=== PATIENT | female | born 1990 | race American Indian/Alaskan Native ===

== ENCOUNTER 2018-01-27 12:37 | Emergency (ER) | payer MEDICAID ==
[2018-01-27 13:20] VITALS: BP 142/100
--- NOTE | 2018-01-27 16:57 | Emergency Department Report ---
ED Extremity Problem HPI - General Chief complaint: Extremity Injury, Lower Stated complaint: BLISTER ON FEET/RASH Time Seen by Provider: 01/27/18 16:46 Source: patient Mode of arrival: Ambulatory Limitations: No Limitations - History of Present Illness Initial comments: 27-year-old female past medical history none presents with complaint of 2 weeks of irritation and slight blistering to both feet slightly worsened right foot and left foot. Patient denies fevers chills nausea vomiting. Patient denies any contact with new cosmetics or substances. 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 Denies any trauma to feet. States she has noticed some slight blistering and lateral aspects of her feet. Patient also states she has slight hand irritation. Denies any recent travel or antibiotic or any medicine use. MD Complaint: other Onset/Timin -: week(s) Location: right Improves with: nothing Worsens with: nothing - Related Data Previous Rx's Medication Instructions Recorded Last Taken Type Hydrocortisone 1% [Hydrocortisone 1 applicatio TP TID PRN #1 tube 01/27/18 Unknown Rx 1% CREAM] Nystatin [Nystop Powder] 1 applicatio TP BID #1 bottle 01/27/18 Unknown Rx Tolnaftate [Tinactin] 1 spray TP TID #1 aero.powd 01/27/18 Unknown Rx ED Review of Systems ROS: Stated complaint: BLISTER ON FEET/RASH Other details as noted in HPI Constitutional: denies: chills, fever Eyes: denies: eye pain, eye discharge, vision change ENT: denies: ear pain, throat pain Respiratory: denies: cough, shortness of breath, wheezing Cardiovascular: denies: chest pain, palpitations Endocrine: no symptoms reported Gastrointestinal: denies: abdominal pain, nausea, diarrhea Genitourinary: denies: urgency, dysuria, discharge Musculoskeletal: denies: back pain, joint swelling, arthralgia Skin: as per HPI, lesions. denies: rash Neurological: denies: headache, weakness, paresthesias Psychiatric: denies: anxiety, depression Hematological/Lymphatic: denies: easy bleeding, easy bruising ED Past Medical Hx - Past Medical History Previous Medical History?: No - Surgical History Past Surgical History?: Yes Additional Surgical History: small blood vessel surgery, hernia repair, and appendix removal - Social History Smoking Status: Former Smoker Substance Use Type: Alcohol - Medications Home Medications: Home Medications Medication Instructions Recorded Confirmed Last Taken Type Hydrocortisone 1% [Hydrocortisone 1 applicatio TP TID PRN #1 tube 01/27/18 Unknown Rx 1% CREAM] Nystatin [Nystop Powder] 1 applicatio TP BID #1 bottle 01/27/18 Unknown Rx Tolnaftate [Tinactin] 1 spray TP TID #1 aero.powd 01/27/18 Unknown Rx ED Physical Exam - General Limitations: No Limitations General appearance: alert, in no apparent distress - Head Head exam: Present: atraumatic, normocephalic - Eye Eye exam: Present: normal appearance - ENT ENT exam: Present: mucous membranes moist - Neck Neck exam: Present: normal inspection - Respiratory Respiratory exam: Present: normal lung sounds bilaterally. Absent: respiratory distress - Cardiovascular Cardiovascular Exam: Present: regular rate, normal rhythm. Absent: systolic murmur, diastolic murmur, rubs, gallop - GI/Abdominal GI/Abdominal exam: Present: soft, normal bowel sounds - Extremities Exam Extremities exam: Present: normal inspection - Back Exam Back exam: Present: normal inspection - Neurological Exam Neurological exam: Present: alert, oriented X3, CN II-XII intact, normal gait - Psychiatric Psychiatric exam: Present: normal affect, normal mood - Skin Skin exam: Present: warm, dry, intact, normal color, vesicles (small vesicles lateral aspect of right foot. No significant cluster of vesicles. No visible lesions on palms or soles of hands or feet.). Absent: rash ED Course Vital Signs 01/27/18 13:11 Temperature 97.2 F L Pulse Rate 65 Respiratory 18 Rate Blood Pressure 142/100 O2 Sat by Pulse 100 Oximetry ED Medical Decision Making - Medical Decision Making A/P: possible contact dermatitis versus fungal infection feet 1-no systemic signs of infection. Vital signs stable, patient is afebrile. 2-contact with any new cosmetics medicines or recent travel. 3-advised patient to wear comfortable fitting shoes to avoid abrasions and contacts stress on skin of the feet. 4-no systemic or widespread lesions on skin. No clinical signs of widespread poor obvious pemphigoid. Patient only has lesions on lateral aspects of her feet. Slightly worse on right than left. 5- follow-up with primary care and dermatology. Advised patient to return to the ED if she experiences fevers chills or rapid spread of the rash to her extremities trunk or any oral lesions. Patient does not have any oral lesions at this time. Critical care attestation.: If time is entered above; I have spent that time in minutes in the direct care of this critically ill patient, excluding procedure time. ED Disposition Clinical Impression: Contact dermatitis Qualifiers: Contact dermatitis type: unspecified Contact dermatitis trigger: unspecified trigger Qualified Code(s): L25.9 - Unspecified contact dermatitis, unspecified cause Disposition: DC- TO HOME OR SELFCARE Is pt being admited?: No Does the pt Need Aspirin: No Condition: Stable Instructions: Tinea Pedis (ED), Contact Dermatitis (ED) Prescriptions: Hydrocortisone 1% [Hydrocortisone 1% CREAM] 1 applicatio TP TID PRN #1 tube PRN Reason: Itching Nystatin [Nystop Powder] 1 applicatio TP BID #1 bottle Tolnaftate [Tinactin] 1 spray TP TID #1 aero.powd Referrals: [facility] [Provider Group] - 3-5 Days [facility] [Provider Group] - 3-5 Days Forms: Work/School Release Form(ED) Time of Disposition: 17:15
== END 2018-01-27 17:24 | disposition home or self-care (01) ==
LOC: ED 12:37
DX: L25.9 Unspecified contact dermatitis, unspecified cause (principal); Z87.891 Personal history of nicotine dependence
CPT/HCPCS: 99282

== ENCOUNTER 2021-07-28 14:22 | Emergency (ER) | payer OTHER, MEDICAID ==
[2021-07-28 14:42] VITALS: BP 131/98
[2021-07-28] MEDS ORDERED: ACETAMINOPHEN 325 MG TAB PO ONE (15:28)
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
--- NOTE | 2021-07-28 16:03 | XRay Report ---
Lumbar spine 3 views INDICATION: Low back pain following injury IMPRESSION: No fracture or subluxation identified. Signer Name: Nikolai Sher MD Signed: 07/28/2021 3:59 PM Workstation Name: [id number]
--- NOTE | 2021-07-28 16:05 | XRay Report ---
Left hip 2 views INDICATION: Left hip pain following injury IMPRESSION: No fracture or subluxation. Signer Name: Nikolai Sher MD Signed: 07/28/2021 4:00 PM Workstation Name: [id number]
== END 2021-07-28 16:50 | disposition home or self-care (01) ==
LOC: ED 14:22
DX: S29.012A Strain of muscle and tendon of back wall of thorax, initial encounter (principal); S70.02XA Contusion of left hip, initial encounter; S00.83XA Contusion of other part of head, initial encounter; S46.912A Strain of unspecified muscle, fascia and tendon at shoulder and upper arm level, left arm, initial encounter; V49.59XA Passenger injured in collision with other motor vehicles in traffic accident, initial encounter; Y93.89 Activity, other specified; Y92.89 Other specified places as the place of occurrence of the external cause; Y99.8 Other external cause status
CPT/HCPCS: 72100; 99283

== ENCOUNTER 2021-11-14 09:59 | Emergency (ER) | payer MEDICAID ==
[2021-11-14] MEDS ORDERED: IPRATROPIUM/ALBUTEROL SULFATE 3 ML AMPUL.NEB IH ONE (10:32)
[2021-11-14] MEDS ORDERED: predniSONE 20 MG TAB PO ONE (10:33)
--- NOTE | 2021-11-14 10:35 | Emergency Department Report ---
ED General Adult HPI - General Chief complaint: Dyspnea/Respdistress Stated complaint: TROUBLE BREATHING/HEART FAILURE Time Seen by Provider: 11/14/21 10:28 Source: patient Mode of arrival: Ambulatory Limitations: No Limitations - History of Present Illness Initial comments: There is a pleasant 31-year-old female with no known past medical history prese nts the emergency department chief complaint of cough, congestion, shortness of breath and pain in her chest when she coughs has been present over the past week. She has been using her inhaler and [id number]-[id number] medications no relief in her symptoms. She denies any known past medical history, current medication other than her inhaler use or known allergies to medications. She denies any oral contraceptive use but does report getting Depo-Provera every 3 months. She denies associated fever, chills, night sweats, nausea, vomit, diarrhea, lower extremity edema or pain, weakness or any other associated symptoms. Severity scale (0 -10): 7 - Related Data Previous Rx's Medication Instructions Recorded Last Taken Type Ibuprofen [Motrin] 600 mg PO Q8H PRN #30 tablet 07/28/21 Unknown Rx methOCARBAMOL [Robaxin TAB] 750 mg PO Q8H PRN #30 tablet 07/28/21 Unknown Rx Ipratropium/Albuterol Sulfate 1 ampul IH Q4HR #1 box 11/14/21 Unknown Rx [DUONEB *Not for PRN Use*] methylPREDNISolone [Medrol 4MG 4 mg PO ONCE #1 11/14/21 Unknown Rx DOSEPAK (21 tabs)] Allergies Allergy/AdvReac Type Severity Reaction Status Date / Time No Known Allergies Allergy Verified 07/28/21 14:42 ED Review of Systems ROS: Stated complaint: TROUBLE BREATHING/HEART FAILURE Other details as noted in HPI Comment: All other systems reviewed and negative Constitutional: denies: chills, fever Eyes: denies: eye pain, eye discharge, vision change ENT: denies: ear pain, throat pain Respiratory: see HPI, cough, shortness of breath. denies: wheezing Cardiovascular: denies: chest pain, palpitations Endocrine: no symptoms reported Gastrointestinal: denies: abdominal pain, nausea, diarrhea Genitourinary: denies: urgency, dysuria, discharge Musculoskeletal: denies: back pain, joint swelling, arthralgia Skin: denies: rash, lesions Neurological: denies: headache, weakness, paresthesias Psychiatric: denies: anxiety, depression Hematological/Lymphatic: denies: easy bleeding, easy bruising ED Past Medical Hx - Past Medical History Hx Congestive Heart Failure: No Hx Diabetes: No Hx Asthma: Yes (last attack about 3 years ago) Hx COPD: No - Surgical History Additional Surgical History: small blood vessel surgery, hernia repair, and appendix removal - Social History Smoking Status: Current Every Day Smoker - Medications Home Medications: Home Medications Medication Instructions Recorded Confirmed Last Taken Type Ibuprofen [Motrin] 600 mg PO Q8H PRN #30 tablet 07/28/21 Unknown Rx methOCARBAMOL [Robaxin TAB] 750 mg PO Q8H PRN #30 tablet 07/28/21 Unknown Rx Ipratropium/Albuterol Sulfate 1 ampul IH Q4HR #1 box 11/14/21 Unknown Rx [DUONEB *Not for PRN Use*] methylPREDNISolone [Medrol 4MG 4 mg PO ONCE #1 11/14/21 Unknown Rx DOSEPAK (21 tabs)] ED Physical Exam - General Limitations: No Limitations General appearance: alert, in no apparent distress - Head Head exam: Present: atraumatic, normocephalic - Eye Eye exam: Present: normal appearance - ENT ENT exam: Present: normal exam, normal orophraynx, mucous membranes moist - Neck Neck exam: Present: normal inspection, full ROM. Absent: tenderness, meningismus - Respiratory Respiratory exam: Present: normal lung sounds bilaterally, wheezes (Mild expiratory wheeze, no increased work of breathing), chest wall tenderness. Absent: respiratory distress, rales, rhonchi, stridor - Cardiovascular Cardiovascular Exam: Present: regular rate, normal rhythm, normal heart sounds. Absent: systolic murmur, diastolic murmur, rubs, gallop - GI/Abdominal GI/Abdominal exam: Present: soft, normal bowel sounds. Absent: distended, tenderness, guarding, rebound, rigid - Extremities Exam Extremities exam: Present: normal inspection, full ROM, normal capillary refill. Absent: tenderness, calf tenderness (Negative Homans' sign bilaterally. No posterior calf tenderness.) - Back Exam Back exam: Present: normal inspection, full ROM. Absent: tenderness, CVA tenderness (R), CVA tenderness (L) - Neurological Exam Neurological exam: Present: alert, oriented X3, normal gait - Psychiatric Psychiatric exam: Present: normal affect, normal mood - Skin Skin exam: Present: warm, dry, intact, normal color. Absent: rash ED Course Vital Signs 11/14/21 10:22 Temperature 98.2 F Pulse Rate 90 Respiratory 18 Rate Blood Pressure 134/83 [Right] O2 Sat by Pulse 97 Oximetry ED Medical Decision Making - Radiology Data Radiology results: report reviewed, image reviewed CHEST 2 VIEWS INDICATION / CLINICAL INFORMATION: cough, congestion. COMPARISON: None available. FINDINGS: SUPPORT DEVICES: None. HEART / MEDIASTINUM: No significant abnormality. LUNGS / PLEURA: No significant pulmonary or pleural abnormality. No pneumothorax. ADDITIONAL FINDINGS: No significant additional findings. IMPRESSION: 1. No acute findings. Signer Name: Leonard Brooks MD Signed: 11/14/2021 11:06 AM Workstation Name: [id number] Transcribed By: VIPUL Dictated By: Leonard Brooks MD Electronically Authenticated By: Leonard Brooks MD Signed Date/Time: 11/14/21 1106 - Medical Decision Making Patient feels much better after breathing treatment. X-ray is unremarkable. She is PERC negative and low risk by Wells criteria. We will treat the patient with short course of steroids, nebulizer DuoNeb and recommended antihistamines and follow-up with her primary care doctor. Return the emerge department change worsening symptoms. She verbalized understand the diagnosis, treatment plan and follow-up instructions all of her questions were answered. - Differential Diagnosis Bronchitis, pneumonia, Covid, asthma Critical care attestation.: If time is entered above; I have spent that time in minutes in the direct care of this critically ill patient, excluding procedure time. ED Disposition Clinical Impression: Acute bronchitis Qualifiers: Bronchitis organism: unspecified organism Qualified Code(s): J20.9 - Acute bronchitis, unspecified Disposition: 01 HOME / SELF CARE / HOMELESS Is pt being admited?: No Condition: Stable Instructions: Acute Bronchitis (ED), Acute Bronchitis, Adult, [id number] Prescriptions: Ipratropium/Albuterol Sulfate [DUONEB *Not for PRN Use*] 1 ampul IH Q4HR #1 box methylPREDNISolone [Medrol 4MG DOSEPAK (21 tabs)] 4 mg PO ONCE #1 Referrals: [facility] [Provider Group] - 3-5 Days Forms: Work/School Release Form(ED) Time of Disposition: 11:21
--- NOTE | 2021-11-14 11:10 | XRay Report ---
CHEST 2 VIEWS INDICATION / CLINICAL INFORMATION: cough, congestion. COMPARISON: None available. FINDINGS: SUPPORT DEVICES: None. HEART / MEDIASTINUM: No significant abnormality. LUNGS / PLEURA: No significant pulmonary or pleural abnormality. No pneumothorax. ADDITIONAL FINDINGS: No significant additional findings. IMPRESSION: 1. No acute findings. Signer Name: Leonard Brooks MD Signed: 11/14/2021 11:06 AM Workstation Name: [id number]
[2021-11-14 11:51] VITALS: BP 128/97
== END 2021-11-14 11:51 | disposition home or self-care (01) ==
LOC: ED 09:59
DX: J20.9 Acute bronchitis, unspecified (principal); J45.909 Unspecified asthma, uncomplicated
CPT/HCPCS: 71046; 94640; 94644; 99283